=== PATIENT | female | born 1960 | race Caucasian/White ===

== ENCOUNTER 2023-09-06 00:41 | Day surgery (SDC) | payer BC, SELFPAY ==
[2023-08-24 14:32] VITALS: BMI 30.4
--- NOTE | 2023-08-24 14:45 | PC.NURSE ---
Report to the Outpatient Waiting Room, entrance under the green pavilion located off [facility], at time _1100_ on date _[id number]_. Planned Procedure Time: _1pm_. Time changes happen often and if your time is changed the preop area will call you the afternoon before. - You and your visitor will be asked to self-screen and do not enter if you have any COVID symptoms. - A mask is optional within the hospital at this time. Patients may have clear liquids (water, carbonated beverages, clear teas, apple juice) until 3 hours prior to surgery with a maximum of 20 ounces. - No food from midnight until time of surgery Take the following medications with a SIP of water the morning of surgery: ___None, says takes all medication in evening. DO NOT STOP ANY OF YOUR OTHER PRESCRIPTION MEDICATIONS PRIOR TO SURGERY ?EXCEPT THE FOLLOWING Medications to discontinue per physician Stopping aspirin per Dr Brody's instruction. Stopping vitamins 3 days before surgery. Please no make-up, nail haitian, hairspray, perfume, deodorant, or body powder the day of surgery. No jewelry (including any body piercings) or valuables the day of surgery, leave them at home. Please take a shower or bath the night before, or the morning of, surgery with an antibacterial soap. Wear comfortable, loose fitting clothing. - Jewelry must be removed prior to entering the operating room. Rings and piercings that are not removed may be cut off. - The hospital will not accept responsibility for valuables. - Please leave all valuables, including medications, at home the day of surgery. If you are going home after surgery, a licensed corporate driver must drive you home. - NO public transportation without another adult if you receive anesthesia. - We recommend that an adult stay with you for 24 hours following discharge. - We also recommend that you do not drive, make important decision, drink alcoholic beverages, or take any drugs that were not prescribed by your health care provider for at least 24 hours after your discharge time. Follow any additional instructions given to you from your surgeon. If you or anyone in your household have experienced Covid symptoms in the past week, please notify your surgeon or the nurse liaison at the phone number below for possible testing. Telephone instructions given to _Dot__and asked if any additional questions and then verbalized understanding. Patient advised to call surgeon office or pre surgery nurse liaison [phone] if any additional questions.
[2023-09-06] VITALS (10 sets, daily range): BP systolic 117–134; BP diastolic 60–88; PULSE 61–92; RESP 14–20; TEMP 36–36.5; O2SAT 99–100
[2023-09-06] MEDS: EPINEPHrine HCL INJ 1 MG/ML AMPUL 3 MG IRRIGATION (08:41)
[2023-09-06] MEDS: KETOROLAC 15 MG/ML VIAL (*BKC) IV PUSH (11:00)
[2023-09-06] MEDS: ACETAMINOPHEN 500 MG TABLET 1000 MG PO (11:00)
[2023-09-06] MEDS: LACTATED RINGERS 1,000 ML 30 ML IV CONT ×2 (11:00→14:19)
--- NOTE | 2023-09-06 11:43 | WPDANESEPPF ---
Anes - Initial Pre Proc Eval Procedure: Operation Date: 09/06/23 12:30 Proposed Procedures p Left Shoulder Arthroscopic Capsular Release with Manipulation - Ariel Brody MD Date/Time: 09/06/23 11:43 Surgeon: Ariel Brody MD Pre Op Diagnosis: left shoulder adhesive capsulitis Patient Data Age: 63 Gender: F Height: 1.63 m Weight: 81.55 kg Last Vital Signs Temp 96.8 F L 09/06/23 11:05 Pulse 80 09/06/23 11:05 Resp 14 09/06/23 11:05 BP 130/73 09/06/23 11:05 Pulse Ox 99 09/06/23 11:05 O2 Del Method Room Air 09/06/23 11:05 Allergies Allergy/AdvReac Type Severity Reaction Status Date / Time No Known Allergies Allergy Verified 09/06/23 11:12 Home Medications Medication Instructions Recorded Confirmed Type ascorbic acid 1,000 1 ea PO HS 07/19/22 08/24/23 History ib-ceswrytanynb-finnkzel powder effervescent pack (Emergen-C) aspirin 81 mg tablet,delayed 81 mg PO DAILY 07/19/22 08/24/23 History release (Adult Aspirin Regimen) cimetidine 200 mg tablet (Acid 200 mg PO Q48H 07/19/22 08/24/23 History Cardiology Clinical Nurse Specialist (cimetidine)) docusate sodium 100 mg tablet 100 mg PO DAILY 07/19/22 08/24/23 History (Stool Softener) duloxetine 60 mg capsule,delayed 60 mg PO DAILY 07/19/22 08/24/23 History release mirabegron 25 mg tablet,extended 25 mg PO DAILY 07/19/22 08/24/23 History release 24 hr (Myrbetriq) topiramate 100 mg capsule,extended 100 mg PO DAILY 07/19/22 08/24/23 History release 24 hr (Trokendi XR) verapamil 120 mg 24 hr 120 mg PO DAILY 07/19/22 08/24/23 History capsule,extended release Patient hx anesthesia problems: none Family hx anesthesia problems: none Results Review: All pre-operative results and documents have been reviewed as part of the pre-operative evaluation. COUNTS INCLUDE 234 BEDS AT THE [facility] Past Medical History Medical History History of stress test Sleep apnea Surgical History Surgical History History of arthroscopic surgery of shoulder labrum tear surgeries first 05/31 History of laparoscopic cholecystectomy (~2018) History of tooth extraction Status post right foot surgery (~2021) Family History Family History Mother Cancer Father Heart disease Social History Social History Smoking status: Never smoker Alcohol intake: never Substance use: never Do You Feel Safe in your Home?: Yes Lack of Transportation: No Lack of Food: Never True Current Housing: I Have Housing Concerned About Future Housing: No Difficulty Paying Gas/Electric Bills: No Difficulty Paying for Meds: No Currently Unemployed: No Education: High School Diploma/GED Difficulty w/ Childcare or Family Care: No Living arrangements: with family Spiritual care concerns: No Anes - Eval Final PreProcedure Day of Procedure 09/06/23 11:43 Patient weight: overweight Heart: regular rate and rhythm Lungs: clear to auscultation Airway: Mallampati scale and special considerations (Many upper and lower caps. ) Neurological: alert and oriented Last oral intake: >/= 8 hours ASA classification: II Emergent: no Anesthetic plan: proceed Anesthesia type and monitoring: general ETT and standard monitoring Results Review: All pre-operative results and documents have been reviewed as part of the pre-operative evaluation. Informed Consent: The patient's anesthetic plan and its attendant risks and benefits were discussed with the patient/family/POA. Questions were solicited and answers provided to the satisfaction of the patient/family/POA.
--- NOTE | 2023-09-06 12:29 | WPDHPUPDATE1 ---
History and Physical Update Update Date/Time: 09/06/23 12:29 History and Physical has been reviewed, including an updated exam of the patient. There are NO changes in the patient's condition. Risks, benefits, and alternatives have been discussed and questions answered. Patient agrees to proceed with procedure.
--- NOTE | 2023-09-06 12:49 | WPDANESPNB ---
Anes - Peripheral Nerve Block Date/Time: 09/06/23 12:49 I have discussed with the patient/family/POA the placement of a peripheral nerve block for post-operative pain management, including associated risks, benefits, complications, and side effects. Alternative methods of post-operative analgesia were detailed. Questions were solicited and answers provided to the satisfaction of the patient/family/POA. Time-Out: A pre-procedural Time-Out was completed immediately before starting the procedure and confirmed: Patient Identification, Site, Procedure, Patient Position and the Availability of Requisite Equipment. Clinical Indications: Acute post-operative pain management requested by the operative surgeon. Nerve Block Insertion Note Anes-nerve block: interscalene left Patient position: supine Skin prep: chlorhexidine Needle: 22 gauge, stimulating, insulated echogenic needle. Needle length: 80 mm Technique: ultrasound Injectate: other (Bupiv 0.5%, 15 mls. ) Observations: tolerated well Procedure start time:: 1230 Procedure end time:: 1240
[2023-09-06] MEDS: ceFAZolin 2 GM/D5W 50 ML 2 GM/50 ML BAG IVPB (12:50)
--- NOTE | 2023-09-06 14:32 | P.OP_ITS ---
Procedure Note - Detailed Date of Procedure 09/06/23 Pre-op Diagnosis 1. Left shoulder adhesive capsulitis 2. Impingement syndrome Post-op Diagnosis Same Procedure Performed Left shoulder 1. Arthroscopic capsule release 2. Arthroscopic subacromial decompression Surgeon Ariel Brody MD [employer] Shanika Abel PA-C Anesthesia General Indications Longstanding intractable adhesive capsulitis. Subsequent subacromial impingement with low-grade bursal side fraying. Findings Contracted capsule. External rotation improved from 25? to 60?. Elevation improved from 80? to 130?. Internal rotation at the side improved from 20? to 50?. Evidence for subacromial impingement with what mild fraying on the undersurface of the acromion. Slight downsloping. Low-grade less than 10% fraying of the bursal rotator cuff. Description of Procedure Preoperative antibiotics were given. A general anesthetic was administered. The patient is placed in the beach chair position. Head neck and arm was carefully positioned. Gentle manipulation under anesthesia was performed. Loosening of the capsule was felt. The shoulder was prepped and draped the usual sterile fashion. Standard posterior and anterior arthroscopic portals were established. Postop obtained with saline pump. The anterior capsule was incised with the radiofrequency probe and the soft tissue resector. The hook p robe was used carefully in the inferior axillary pouch. Release was carried out from the anterior inferior and posterior capsules. Proliferative tissue in the rotator interval was excised with the arthroscopic shaver. The articular rotator cuff appeared healthy with only minimal fraying. The articular cartilage showed grade 1 chondromalacia on the humerus. Estimated Blood Loss 20 Drains No Packing No Pathology None sent Complications No immediate complications Condition Stable Disposition PACU [facility] Billing Surgery - Charge Forward: Surgery Billing
== END 2023-09-06 16:43 | disposition home or self-care (01) ==
PROVIDERS: Visit Provider Orthopaedic Surgery
PROC: (CPT 29805; principal; 2023-09-06 12:30)
DX: M75.02 Adhesive capsulitis of left shoulder (principal); M75.42 Impingement syndrome of left shoulder; Z79.82 Long term (current) use of aspirin; G89.18 Other acute postprocedural pain; G47.30 Sleep apnea, unspecified; Z98.890 Other specified postprocedural states; Z90.49 Acquired absence of other specified parts of digestive tract; Z80.9 Family history of malignant neoplasm, unspecified; Z82.49 Family history of ischemic heart disease and other diseases of the circulatory system
CPT/HCPCS: 64415; 29826; 29825; A9270; J0171; J0690; J1100; J1885; J2250; J2405; J2704; J3010; J7120

== ENCOUNTER 2023-11-28 09:18 | Outpatient (CLI) | payer BC, SELFPAY ==
--- NOTE | 2023-11-28 | ECG_ITS ---
Test Date: 2023-11-28 09:37:39 Measurements Intervals [place] Rate: 71 P: 46 CO: 167 QRS: 7 QRSD: 81 T: 29 QT: 367 QTc: 399 Interpretive Statements SINUS RHYTHM NORMAL ECG No previous ECG available for comparison Electronically Signed On 11-28-2023 09:47:15 CDT by Sina Gastelum D.O.
== END 2023-11-28 09:19 | disposition home or self-care (01) ==
LOC: ANHCARD 09:24
PROVIDERS: Visit Provider Podiatrist Foot & Ankle Surgery
DX: R03.0 Elevated blood-pressure reading, without diagnosis of hypertension (principal)
CPT/HCPCS: 93005